=== PATIENT | male | born 1975 | race Caucasian/White ===

== ENCOUNTER 2016-10-04 06:12 | Day surgery (SDC) | payer BC ==
[~2016-10-04] VITALS: Ht 193 cm; Wt 111.0 kg
[~2016-10-04 06:12] MED LIST: ALBU8.5H3 INH; ALLERGY PO
[2016-10-04 06:58] VITALS: BP 123/88
[2016-10-04] MEDS ORDERED: MIDAZOLAM 1 MG/ML, 2ML ONE (06:59)
[2016-10-04] MEDS ORDERED: FENTANYL PF 250 MCG/5ML ONE (06:59)
[2016-10-04] MEDS ORDERED: LACTATED RINGERS 1,000 ML IV SCH (07:01)
[2016-10-04] MEDS ORDERED: FLUORESCEIN OPHTHALMIC 1 MG STRIP ONE (07:10)
[2016-10-04] MEDS ORDERED: EPINEPHRINE TOPICAL SOLN 1 MG/ML, 30ML ONE (07:10)
[2016-10-04] MEDS ORDERED: LIDOCAINE 1%-EPI 1:100K, 50ML ONE (07:10)
[2016-10-04] MEDS ORDERED: BACITRACIN OINT 500U/GM, 15 GM ONE (07:10)
[2016-10-04] MEDS ORDERED: OXYMETAZOLINE NASAL SPRAY 0.05%, 15ML ONE (07:10)
[2016-10-04] MEDS ORDERED: ONDANSETRON 2MG/ML, 2ML IVPush PRN (09:30)
[2016-10-04] MEDS ORDERED: OXYcodone 5 MG/5 ML ORAL.SOL UDC PO PRN (09:30)
[2016-10-04] MEDS ORDERED: LABETALOL 5MG/ML, 20ML IV PRN (09:30)
[2016-10-04] MEDS ORDERED: ACETAMINOPHEN 325 MG TABLET PO PRN (09:30)
[2016-10-04] MEDS ORDERED: METOCLOPRAMIDE 5 MG/ML, 2ML IV PRN (09:30)
[2016-10-04] MEDS ORDERED: HYDROmorphone 1 MG/ML, 1ML IV PRN (09:30)
[2016-10-04] MEDS ORDERED: hydrALAzine 20 MG/ML, 1ML IV PRN (09:30)
[2016-10-04] MEDS ORDERED: ACETAMINOPHEN 325 MG TABLET ONE (11:11)
[2016-10-04] MEDS ORDERED: ACETAMINOPHEN 650 MG/20.3 ML UDC ONE (11:11)
[2016-10-04] MEDS ORDERED: FENTANYL PF 100 MCG/2ML ONE (11:11)
[2016-10-04] MEDS ORDERED: OXYcodone 5 MG/5 ML ORAL.SOL UDC ONE (11:12)
[2016-10-04] MEDS: FENTANYL PF 100 MCG/2ML IV PRN ×2 (11:15→11:25)
[2016-10-04] MEDS ORDERED: morphine SULFATE 10 MG/ML, 1ML IVPush PRN (13:00)
[2016-10-04] MEDS ORDERED: HYDROcodone/APAP 5/325 TABLET PO PRN (14:30)
[2016-10-04] MEDS ORDERED: PROPOFOL 10 MG/ML, 20ML ONE (15:37)
[2016-10-04] MEDS ORDERED: CEFAZOLIN 1,000 MG ONE (15:37)
[2016-10-04] MEDS ORDERED: SUCCINYLCHOLINE 20 MG/ML, 10ML ONE (15:37)
[2016-10-04] MEDS ORDERED: ONDANSETRON 2MG/ML, 2ML ONE (15:37)
[2016-10-04] MEDS ORDERED: DEXAMETHASONE 4 MG/ML, 1ML ONE (15:37)
[2016-10-04] MEDS ORDERED: ROCURONIUM 10 MG/ML ONE (15:37)
== END 2016-10-04 14:55 | disposition home or self-care (01) ==
LOC: OUT 06:12
PROVIDERS: ATTEND Otolaryngology
DX: J34.2 Deviated nasal septum (principal); J34.3 Hypertrophy of nasal turbinates; J32.0 Chronic maxillary sinusitis; J32.2 Chronic ethmoidal sinusitis; J33.0 Polyp of nasal cavity; J34.89 Other specified disorders of nose and nasal sinuses
CPT/HCPCS: 30130; 30520; 31255; 31256; 88304; J0330; J0690; J1100; J2250; J2405; J2704; J3010; J7120